=== PATIENT | female | born 1990 | race Caucasian/White ===

== ENCOUNTER 2017-07-30 19:50 | Emergency (ER) | payer OTHER ==
[~2017-07-30] VITALS: Ht 165.1 cm; Wt 74.0 kg
[2017-07-30 19:50] VITALS: O2SAT 99; Ht 165.1 cm; Wt 74.0 kg
[2017-07-30 20:45] LABS: BUN/CREATININE RATIO 10.8 (10-20); CALCIUM 8.5 mg/dl (8.5-10.1); CREATININE 0.83 mg/dl (0.60-1.20); POTASSIUM 3.7 mmol/L (3.5-5.1)
[2017-07-30 20:47] LABS: PREG INTERNAL NEGATIVE QC NEG CLEAR BACKGROUND; PREG INTERNAL POSITIVE QC POS CONTROL LINE
--- NOTE | 2017-07-30 22:24 | DIAGNOSTIC IMAGING REPORT ---
CT HEAD WITHOUT CONTRAST (CT) CLINICAL HISTORY: Head trauma. Ethanol intoxication. COMPARISON STUDY: No previous studies for comparison. TECHNIQUE: Axial CT of the brain is performed from the vertex to the skull base. IV contrast was not administered for this examination. A dose lowering technique was utilized adhering to the principles of ALARA. CT DOSE: 601.98 mGy.cm FINDINGS: No intra or extra-axial mass lesions are visualized. There is no CT evidence of acute cortical infarction. There is no evidence of midline shift. There is no acute hemorrhage. No calvarial fractures are visualized. There is no evidence of pathologic ventricular dilatation. There is no evidence of acute sinusitis IMPRESSION: Normal noncontrast head CT. Electronically signed by: Mauricio Dial M.D. 07/30/2017 10:22 PM Dictated Date/Time: 07/30/2017 10:21 PM
[2017-07-30 22:39] VITALS: BP 107/78; PULSE 87; TEMP 36.7; O2SAT 100
--- NOTE | 2017-07-31 02:12 | EMERGENCY ROOM VISIT NOTE ---
History Report prepared by Claudiaibhilary: Justine Ramires Under the Supervision of: Dr. Blair Bennett D.O. First contact with patient: 19:54 Stated Complaint: ETOH History of Present Illness The patient is a 26 year old female who presents to the Emergency Room with complaints of an alcohol overdose. She was brought to the ED via EMS. EMS reports the patient was initially going to be released to a sober friend [place], but she became combative while in their care and the friend she was going to be released too was intoxicated. The patient states she drank both beer and vodka today. She denies headache, change in vision, fevers, chest pain, shortness of breath, nausea, vomiting, diarrhea, pain with urination, and melena. Source of History: patient, EMS Onset: [employer] Position: other (global) Quality: other (alcohol intoxication) Timing: constant Associated Symptoms: No fevers, No headache, No chest pain, No SOB, No nausea, No vomiting, No melena, No diarrhea, No urinary symptoms Review of Systems See HPI for pertinent positives & negatives. A total of 10 systems reviewed and were otherwise negative. Past Medical & Surgical Medical Problems: (1) No significant past medical history Social History Alcohol Use: occasionally Drug Use: none Marital Status: Housing Status: lives with significant other Occupation Status: employed Current/Historical Medications Unable to Obtain Active Prescriptions or Reported Meds Physical Exam Vital Signs Date Time Temp Pulse Resp B/P (MAP) Pulse Ox O2 Delivery O2 Flow Rate FiO2 07/30/17 22:39 36.7 87 22 107/78 100 07/30/17 22:38 87 22 107/78 100 Room Air 07/30/17 21:39 87 22 107/78 100 Room Air 07/30/17 20:55 89 22 106/86 100 07/30/17 20:50 85 18 100 07/30/17 20:20 105 10 98 07/30/17 20:04 110 07/30/17 20:02 107/81 07/30/17 19:50 99 Room Air 07/30/17 19:50 99 Room Air 07/30/17 19:50 36.7 103 22 107/81 99 Room Air Physical Exam GENERAL: Patient is laying in bed, visibly intoxicated, smells of ETOH on breath. EYE EXAM: Conjunctiva injected with faint horizontal nystagmus. OROPHARYNX: no exudate, no erythema, lips, buccal mucosa, and tongue normal and mucous membranes are moist NECK: supple, no nuchal rigidity, no adenopathy, non-tender LUNGS: Clear to auscultation. Normal chest wall mechanics HEART: Tachycardic heart rate, no murmurs, S1 normal and S2 normal ABDOMEN: abdomen soft, non-tender, normo-active bowel sounds, no masses, no rebound or guarding. BACK: Back is symmetrical on inspection and there is no deformity, no midline tenderness, no CVA tenderness. SKIN: no rashes and no bruising UPPER EXTREMITIES: upper extremities are grossly normal. LOWER EXTREMITIES: No pitting edema. NEURO EXAM: Patient is awake, alert, following commands, nodding yes and no, no focal deficits. Medical Decision & Procedures ER Provider Diagnostic Interpretation: Radiology results as stated below per my review and the radiologist's interpretation: CT HEAD WITHOUT CONTRAST (CT) CLINICAL HISTORY: Head trauma. Ethanol intoxication. COMPARISON STUDY: No previous studies for comparison. TECHNIQUE: Axial CT of the brain is performed from the vertex to the skull base. IV contrast was not administered for this examination. A dose lowering technique was utilized adhering to the principles of ALARA. CT DOSE: 601.98 mGy.cm FINDINGS: No intra or extra-axial mass lesions are visualized. There is no CT evidence of acute cortical infarction. There is no evidence of midline shift. There is no acute hemorrhage. No calvarial fractures are visualized. There is no evidence of pathologic ventricular dilatation. There is no evidence of acute sinusitis IMPRESSION: Normal noncontrast head CT. Electronically signed by: Mauricio Dial M.D. 07/30/2017 10:22 PM Laboratory Results 07/30/17 20:10 Test 07/30/17 20:09 07/30/17 20:10 Bedside Glucose 93 mg/dl (70-90) Anion Gap 8.0 mmol/L (3-11) Est Creatinine Clear Calc Drug Dose 103.5 ml/min Estimated GFR () 112.8 Estimated GFR (Non- 97.3 BUN/Creatinine Ratio 10.8 (10-20) Calcium Level 8.5 mg/dl (8.5-10.1) Human Chorionic Gonadotropin, Qual NEG (NEG) Ethyl Alcohol mg/dL 341.0 mg/dl (0-3) Laboratory results per my review. ED Course ED COURSE: Vital signs were reviewed and showed the patient is tachycardic. The patients medical record was reviewed The above diagnostic studies were performed and reviewed. ED treatments and interventions as stated above. 1956: The patient was evaluated in room B12A. A complete history and physical examination was performed. 2129: The patient is awake, sitting up in bed, able to carry a conversation and requesting Gatorade. 2115: I reevaluated the patient. Her is at the bedside and wants to take her home. He admits he's been drinking, but going to call for a sober friend. 2154: Nursing informed me the patient has a sober friend named Blair Hogan, who is able to take her home. He is able to have a full conversation with no smell of alcohol on the breath. 2157: Nursing informed me the patient fell while trying to get up. 2199: I reevaluated the patient. She consents to a CT scan. 2224: Upon reevaluation, the patient is feeling much better. I discussed my findings with the patient and she understands and agrees with the treatment plan. Based on the patients age, coexisting illnesses, exam and lab findings the decision to treat as an outpatient was made. The patient remained stable while under my care. The patient appeared well at the time of discharge. Medical Decision Differential diagnosis includes etiologies such as alcohol intoxication, toxicologic, infection, hypoglycemia, electrolyte abnormalities, cardiac sources , intracerebral event, neurologic, as well as others were entertained. Patient is a 26-year-old female is brought into ER by EMS and she was visibly intoxicated at that time. No trauma. She was brought in by EMS. No complaints. BMP was unremarkable, HCG was neg. Alcohol 340. Patient was able to obtain a sober friend. Prior to discharge she tripped and fell and hit her head. CT head was obtained which was unremarkable. Complete exam was reperformed she is at her baseline. She was discharged in care of her sober friend. She was able to carry on a full conversation. Ambulate and had no new complaints. Discussed with Pt concerning signs and symptoms to watch out for. Pt was instructed to follow up with their PCP and discussed with the patient their option to return to the ED at anytime for persistent or worsening symptoms. The appropriate anticipatory guidance and out-patient management, including indications for return to the emergency department, were explained at length to the patient and understood. Medication Reconcilliation Current Medication List: was personally reviewed by me Blood Pressure Screening Patient's blood pressure: Normal blood pressure Blood pressure disposition: Did not require urgent referral Impression Primary Impression: Alcohol intoxication Additional Impression: Alcohol abuse Scribe Attestation The scribe's documentation has been prepared under my direction and personally reviewed by me in its entirety. I confirm that the note above accurately reflects all work, treatment, procedures, and medical decision making performed by me. Departure Information Dispostion Home / Self-Care Prescriptions Unable to Obtain Active Prescriptions or Reported Meds Patient Instructions [facility]: [employer] Students and Alcohol Related Visits, My [facility] Additional Instructions Please follow up with your primary care doctor with in the next 24 hours. Any worsening of your symptoms, please return to the ED immediately. This includes any fevers greater than 100.4, chest pain, shortness breath, persistent nausea, vomiting, unable to eat or drink, or any other concerning signs or symptoms from your standpoint. Please do not drink alcohol for the remainder of the night. Please refrain from driving for the next 14 hours and you will still be intoxicated. Please make sure that she is monitored closely through the remainder of the night by a sober friend. Problem Qualifiers Primary Impression: Alcohol intoxication Complication of substance-induced condition: uncomplicated Qualified Codes: F10.920 - Alcohol use, unspecified with intoxication, uncomplicated
== END 2017-07-30 22:40 | disposition home or self-care (01) ==
LOC: C.EDB 19:53
DX: F10.129 Alcohol abuse with intoxication, unspecified (principal); W01.198A Fall on same level from slipping, tripping and stumbling with subsequent striking against other object, initial encounter